=== PATIENT | male | born 1995 | race African-American/Black ===

== ENCOUNTER 2024-06-14 02:06 | Emergency (ER) | payer OTHER ==
[~2024-06-14] VITALS: Ht 188 cm; Wt 90.7 kg
[2024-06-14] MEDS ORDERED: PROCHLORPERAZINE EDISYLATE 10 MG/2 ML VIAL IV ONE (02:30)
[2024-06-14] MEDS ORDERED: KETOROLAC TROMETHAMINE 30 MG/ML VIAL IV ONE (02:30)
[2024-06-14] MEDS ORDERED: diphenhydrAMINE HCL 50 MG/ML VIAL IV ONE (02:30)
[2024-06-14] MEDS ORDERED: LACTATED RINGER'S 1,000 ML IV ONE (02:30)
[2024-06-14 04:15] VITALS: BP 106/78
== END 2024-06-14 04:19 | disposition home or self-care (01) ==
LOC: ED 02:06
DX: G43.909 Migraine, unspecified, not intractable, without status migrainosus (principal); H53.149 Visual discomfort, unspecified; Z91.040 Latex allergy status
CPT/HCPCS: 70450; 96374; 96375; 99283-25; J0780; J1200; J7121